=== PATIENT | female | born 1990 | race Caucasian/White ===

== ENCOUNTER → 2019-09-01 | Outpatient (CLI) | payer OTHER ==
--- NOTE | 2019-09-02 04:52 | REP ---
Clinical: Placental location Comparison: None . Findings: Examination demonstrates a single live intrauterine in cephalic presentation. motion is identified by technologist. Placenta is noted anterior and grade I without evidence for placenta previa or abruption. Placental tip 4 cm from the closed internal os. Amniotic fluid volume is normal. Cervix measures 3.4 cm in length and appears closed. No evidence for nuchal cord. Gestational age by LMP 26 weeks 4 days with GRAEME 12/04/2019 . Gestational age by current measurements 26 weeks 6 days with GRAEME 12/02/2019 . FHR equals 144 beats per minute. Estimated weight 964 grams ( 43rd percentile). Anatomical assessment demonstrates normal structures including cranium, choroid plexus, cavum, cerebellum/posterior fossa, facial features, lungs, four-chamber heart/ventricular outflow tracts, diaphragm, stomach, cord insertion/three-vessel cord, kidneys/bladder, and upper extremities. Impression: 1. Single live intrauterine in cephalic presentation demonstrating appropriate estimated weight. 2. Placenta identified anteriorly and 4 cm from the closed internal os. Electronically Signed by Chicho Diallo MD 09/02/2019 04:43 A
== END ==
LOC: M RAD 09:25
PROVIDERS: ATTEND Registered Nurse Maternal Newborn
DX: Z34.02 Encounter for supervision of normal first pregnancy, second trimester (principal); Z3A.25 25 weeks gestation of pregnancy

== ENCOUNTER → 2019-11-20 | Outpatient (CLI) | payer OTHER ==
[~2019-11-20] MED LIST: DIBU10OI TOP; DOCU100C16 PO; IBUP80TA PO; PRENTAB9 PO
--- NOTE | 2019-11-20 11:09 | REP ---
Obstetric sonography: History: 50-vbya-0-day gestation for growth study, biophysical profile and Doppler. Size less than dates. Comparison study September 01, 2019. Findings: Scanning through the gravid uterus confirms the presence of a single living intrauterine gestation in a cephalic lie. motion is observed and heart rate is recorded at 150 beats per minute. Anterior grade 2 placenta is seen without evidence of previa or abruption. Amniotic fluid is subjectively normal. No extrauterine abnormalities observed. There has been appropriate interval growth. Exam quality is inhibited some degree by advanced gestational age and position. Biometry chart: BPD 9.3 cm 37 weeks 6 days Head circumference 32.8 cm 37 weeks 2 days Abdominal circumference 33.6 cm 37 weeks 4 days Femur length 7.1 cm 36 weeks 3 days Humeral length 6.4 cm 37 weeks 0 days HC/AC ratio normal 0.98 Cephalic index normal 0.81 Estimated weight 3163 grams, 6 pounds 15 ounces, 46 percentile for 38 weeks 0 days TREY normal 17.7 cm Biophysical profile score eight out of a possible eight SD ratio in the umbilical cord artery by Doppler slightly elevated at 2.77 (1.60-2.60) Impression: Viable single intrauterine gestation at 37 weeks 1 day by today's composite criteria. Expected gestational age estimate based on prior sonography is 38 weeks 2 days. GRAEME by prior sonography December 02, 2019. Electronically Signed by Adrián Christianson MD 11/20/2019 11:01 A
== END ==
LOC: M RAD 09:15
PROVIDERS: ATTEND Registered Nurse Maternal Newborn
DX: O26.843 Uterine size-date discrepancy, third trimester (principal); Z3A.38 38 weeks gestation of pregnancy

== ENCOUNTER → 2019-11-27 | Outpatient (CLI) | payer OTHER ==
--- NOTE | 2019-11-27 11:01 | REP ---
OB ULTRASOUND, BIOPHYSICAL PROFILE: Real-time sonographic evaluation of the gravid uterus performed. There is a single living intrauterine gestation. The estimated gestational age is reportedly 39 weeks 0 weeks, EDC 12/04/2019. heart rate 150 beats per minute. Amniotic fluid appears within normal limits. TREY 13.4, normal range 7.2 to 22.6. Biophysical profile score is 8/8. S/D ratio 2.18, normal range 1.6 to 2.8. RI 0.54. position vertex. Placenta anterior and grade 1-2 with no previa or abruption. Electronically Signed by Marshall Bal MD 11/30/2019 10:14 P
== END ==
LOC: M RAD 09:19
PROVIDERS: ATTEND Advanced Practice Midwife
DX: Z34.83 Encounter for supervision of other normal pregnancy, third trimester (principal); Z3A.39 39 weeks gestation of pregnancy

== ENCOUNTER 2019-11-29 01:50 | Inpatient (IN) | payer OTHER ==
[~2019-11-29] VITALS: Ht 167.6 cm; Wt 65.2 kg
[2019-11-29] VITALS (52 sets, daily range): BP systolic 98–141; BP diastolic 54–114
[2019-11-29] MEDS ORDERED: PRENTAB9 PO (02:06)
[2019-11-29] MEDS ORDERED: LACTATED RINGER'S 1000 ML IV STA (03:01)
--- NOTE | 2019-11-29 03:01 | HPEPDOC ---
Obstetrical History & Physical General Date of Admission History of Present Illness Patient is a 29yo at 39.2wks by LMP c/w 15wk US. C/o large gush of fluid at 0100. Having ctx since. No VB. No headache or visual changes. Good movement. Chief Complaint: Rupture of membranes Information Provided By: Patient : 1 Term: 0 Care Care: Good Care Dating Final EDC: Dec 04, 2019 Final EDC by: LMP Antepartum Course Height (inches): 65 Pre- weight (lbs.): 120 Admission Weight (lbs.): 145 Change in Weight (lbs.): 25 Past Medical History Past Obstetrical History : Past Obstetrical History: [employer] History: No pertinent history Past Medical History Medical History none Surgical History: Breast augmentation, [place] teeth Social History Marital Status: Family situation: Spouse/partner home Psychosocial History: No pertinent psych hx Alcohol: Denies Drugs: denies Abuse Violence Screening Have you been hit/kicked/slapp: No Have you been sexually assault: No Imunizations Tdap status: current Influenza Status: current Allergies Coded Allergies: No Known Allergies (Unverified , 11/29/19) Medications Scheduled No.137/Iron/Folic Acd ( Vitamin Tablet) 1 Each Tablet, 1 TAB PO DAILY Physical Examination Physical Examination GENERAL: Alert and oriented times three. BREAST: . ABDOMEN: Gravid and non-tender to touch. FETUS: Is vertex (VTX) by sterile vaginal examination (SVE), fetus is 3200gm by Theodore. HEART RATE: Regular rate and rhythm. LUNGS: Clear to auscultation (CTA). EXTREMITIES: No edema. SSE: large pooling and nitrazine positive Vital Signs/I&O Vital Signs Date Time Temp Pulse Resp B/P (MAP) Pulse Ox O2 Delivery O2 Flow Rate FiO2 11/29/19 02:15 97.9 73 16 132/74 (93) Laboratory Data Urine Culture: Contaminated Pertinent Laboratoy Data Blood Type: O+ RBC Antibody Screen: Negative HIV: Negative Hepatitis B: Negative Rapid Plasma Reagin: Nonreactive Rubella: Immune Varicella: Nonreactive Chlamydia/Gonorrhea: Negative Group B Streptococcus: Negative Quad Screen Test: Negative Glucose Tolerance Test: 78 Anatomy Ultrasound Ultrasound Date: Jul 16, 2019 Placenta Location: Anterior Normal Anatomy: Yes Placenta Previa: No Estimated Weight (grams): 332 Steroid Therapy Steroid Therapy: No Vaginal Examination Dilation: 3 cm Effacement: 90% Station: -2 Cervical Consistency: Soft Cervical Position: Posterior Presentation: Cephalic presentation Position: Vertex (occiput) Assessment Heart Rate (FHR): 120 Variability: Moderate Accelerations: Positive Decelerations: None Tocometer Contractions: Yes Frequency: every 2-5 min. Multi-drug resistant Organism: No history of MDRO Assessment/Plan Assessment Patient is a 29yo at 39.2wks by LMP c/w 15wk US. Admit for SROM and expect delivery by . Pain management per patient preference, which was discussed with her. I discussed risks of with patient of failure with section, distress, bleeding, infection, , vaginal or perineal or neighboring organ tear. Currently, fetus is reassuring. GBS is negative, no need for antibiotics. Plan Admit and orient. Director Of Nursing and consent. Diet: Regular. Group B Streptococcus (GBS) negative. Labs and intravenous (IV) per unit protocol. Counseled on Pitocin and augmentation of labor. Lactated Ringers (LR): Bolus 500 mL, then at 125 mL/hr. Anticipate normal spontaneous delivery (). C-S as appropriate. Pain mgt per patient. Monae Argueta MD Nov 29, 2019 03:01
[2019-11-29] MEDS ORDERED: diphenhydrAMINE 25MG CAP PO PRN (03:15)
[2019-11-29] MEDS ORDERED: CALCIUM CARBONATE 500 MG CHEW U/D PO PRN (03:15)
[2019-11-29] MEDS ORDERED: SIMETHICONE 80 MG CHEW TAB PO PRN (03:15)
[2019-11-29] MEDS ORDERED: ONDANSETRON 4MG/2ML VIAL IV SCH (03:15)
[2019-11-29] MEDS ORDERED: PROMETHAZINE INJ 25 MG/ML VIAL (J2550) IV PRN (03:15)
[2019-11-29] MEDS ORDERED: MOM 30ML SUSPENSION UDC PO PRN ×2 (03:15→21:15)
[2019-11-29] MEDS ORDERED: BUTORPHANOL 2 MG/ML INJ (J0595) IV PRN (03:15)
[2019-11-29] MEDS ORDERED: ACETAMINOPHEN 500 MG TAB PO PRN ×2 (03:15→21:15)
[2019-11-29] MEDS: LR 1,000 ML IV SCH ×2 (03:43→07:13)
[2019-11-29 03:58] LABS: BASO # 0.1 10^3/uL (0.0-0.2); BASO % 0.7 % (0.0-1.0); EOS # 0.1 10^3/uL (0.0-0.5); EOS % 0.6 % (0.0-3.0); HEMATOCRIT 33.3 % (36.0-47.0); HEMOGLOBIN 11.1 g/dl (12.0-15.5); LYMPH % 24.3 % (24.0-44.0); MEAN CORPUSCULAR HEMOGLOBIN 29.8 pg (27.0-33.0); MEAN CORPUSCULAR HGB CONC 33.3 g/dl (32.0-36.5); MEAN CORPUSCULAR VOLUME 89.5 fl (80.0-96.0); MONO % 7.7 % (0.0-5.0); NEUTROPHILS # 8.2 10^3/uL (1.5-8.5); NEUTROPHILS % 65.7 % (36.0-66.0); PLATELET COUNT, AUTOMATED 280 10^3/uL (150-450); RED BLOOD COUNT 3.72 10^6/uL (4.00-5.40); WHITE BLOOD COUNT 12.4 10^3/uL (4.0-10.0)
[2019-11-29] MEDS ORDERED: FENTANYL 2MCG/ML ROPIVACAINE 0.2% IN 0.9% NACL 100ML IVBAG As Ordered ONE ×2 (07:51→15:40)
[2019-11-29] MEDS ORDERED: ePHEDrine SULFATE 25 MG/5 ML(5MG/ML) SYRINGE IV PRN (08:15)
[2019-11-29] MEDS ORDERED: REFRIGERATOR IV KEYS XX PRN (08:15)
[2019-11-29] MEDS ORDERED: EPIDURAL/PCA KEYS XX PRN (08:15)
[2019-11-29] MEDS ORDERED: EPIDURAL COMMENT XX SCH (08:15)
[2019-11-29] MEDS ORDERED: NALOXONE INJ 0.4MG/1ML VIAL (J2310 PER 1MG) IV PRN (08:15)
[2019-11-29] MEDS ORDERED: diphenhydrAMINE 50MG/ML VIAL (J1200) IV PRN (08:15)
[2019-11-29] MEDS ORDERED: ONDANSETRON 4MG/2ML VIAL IV PRN (08:15)
[2019-11-29] MEDS: FENTANYL/ROPIVACAINE/NACL BAG 100 ML EPIDURAL SCH ×2 (08:28→15:44)
[2019-11-29] MEDS ORDERED: OXYTOCIN DRIP 30 UNITS in IV 1 EA IV SCH (11:45)
[2019-11-29 20:56] LABS: CORD GAS ABE A -5.8; CORD GAS ABE V -4.6; CORD GAS HCO3 A 18.7 MEQ/L; CORD GAS HCO3 V 19.5 MEQ/L; CORD GAS O2 SAT A 71.8 %; CORD GAS O2 SAT V 67.9 %; CORD GAS PCO2 A 34.5 mmHg; CORD GAS PCO2 V 34.7 mmHg; CORD GAS PH A 7.351 UNITS; CORD GAS PH V 7.368 UNITS; CORD GAS PO2 A 30.6 mmHg; CORD GAS PO2 V 28.2 mmHg; CORD GAS SBC A 19.2 MEQ/L; CORD GAS SBC V 19.9 MEQ/L; CORD GAS TCO2 A 19.7 MEQ/L; CORD GAS TCO2 V 20.6 MEQ/L
[2019-11-29] MEDS ORDERED: IBUPROFEN 800 MG TAB PO PRN (21:15)
[2019-11-29] MEDS ORDERED: METHYLERGONOVINE MALEATE 0.2 MG TAB PO PRN (21:15)
[2019-11-29] MEDS ORDERED: DOCUSATE SODIUM 100 MG CAP PO PRN (21:15)
[2019-11-29] MEDS ORDERED: ANUSOL HC CREAM 30GM TOP PRN (21:15)
[2019-11-29] MEDS ORDERED: IBUPROFEN 600MG TAB PO PRN (21:15)
[2019-11-29] MEDS ORDERED: DIBUCAINE 1% OINTMENT 30GM TOP PRN (21:15)
[2019-11-29] MEDS ORDERED: RHOGAM 300 MCG (1500 IU) INJ (J2790) IM SCH (21:15)
[2019-11-29] MEDS ORDERED: MEASLES,MUMPS,RUBELLA VACCINE INJ (MMR-II) (90707) SC SCH (21:15)
[2019-11-29] MEDS ORDERED: OXYTOCIN INJ 10 UNITS/ML VIAL (J2590) IV ONE (21:15)
[2019-11-29] MEDS ORDERED: ACETAMINOPHEN TAB 650MG DOSE (2X325MG) PO PRN (21:15)
[2019-11-29] MEDS ORDERED: OXYTOCIN DRIP 30 UNITS in IV 1 EA IV ONE (21:15)
[2019-11-30 05:52] VITALS: BP 107/55
--- NOTE | 2019-11-30 07:33 | IPN ---
DATE: 11/29/2019 This is a 29-year-old, 1, para 0, at 39 and 2 weeks of gestation with a history of premature rupture of membranes of clear liquor. She was evaluated initially when she came in, was cara, had a category 1 strip, now asks for an epidural. She was in the process of having her epidural. The nurse checked her post epidural and found to be 5-6 cm with clear liquid, category 1 strip. She is not getting great pain relief from her epidural and may require attention from anesthesiology. Her blood pressure presently is 109/60, respirations 16, pulse 68, temperature 97.9. Her hemoglobin is 11.1, hematocrit 33.3, and platelets 280. In summary, we have a term gestation in active labor, premature rupture of membranes, category 1 strip, safe to proceed.
[2019-11-30] MEDS: PRENATAL VITAMINS CHEWABLE TABLET PO SCH (07:37)
[2019-11-30 07:45] LABS: HEMATOCRIT 27.5 % (36.0-47.0); MEAN CORPUSCULAR HEMOGLOBIN 30.3 pg (27.0-33.0); MEAN CORPUSCULAR HGB CONC 33.1 g/dl (32.0-36.5); MEAN CORPUSCULAR VOLUME 91.7 fl (80.0-96.0); PLATELET COUNT, AUTOMATED 212 10^3/uL (150-450); WHITE BLOOD COUNT 22.7 10^3/uL (4.0-10.0)
[2019-11-30 08:00] LABS: HEMOGLOBIN 9.1 g/dl (12.0-15.5)
--- NOTE | 2019-11-30 11:56 | IPN ---
DATE: 11/30/2019 This lady is a 29-year-old 1, now para 1, was admitted at 39 weeks and 2 days in spontaneous labor. She had an epidural in place, delivered a live male infant 6 pounds 9 ounces (2990 grams). score of 8 and 8 at one and five minutes, respectfully. Arterial pH 7.35, base excess -5.8. Venous pH 7.36, base excess -4.6. Cord was around the neck times one tight. She had an intact perineum, some bruising in the vagina. On her first day, we discussed phlebitis, cystitis, mastitis, endometritis and cellulitis, diet, exercise, pain management, perineal, breast and wound care. Blood pressure this morning is 107/55, respirations are 14, pulse 61, temperature is 97.3. Her admitting hemoglobin was 11.1, hematocrit 33.3, and platelets were 280. We are waiting for her day #1 hemoglobin. She is presently breast-feeding, doing well. Plan is for discharge tomorrow. 6-week followup at [facility] and medications dispensed at [place]. All questions were answered, basic translation through her .
[2019-11-30 18:00] VITALS: BP 124/60
[2019-12-01 06:00] VITALS: BP 128/70
[2019-12-01] MEDS ORDERED: DIBU10OI TOP (06:36)
[2019-12-01] MEDS ORDERED: IBUP80TA PO (06:36)
[2019-12-01] MEDS ORDERED: DOCU100C16 PO (06:36)
[2019-12-01] MEDS: PRENATAL VITAMINS CHEWABLE TABLET PO SCH (09:40)
--- NOTE | 2019-12-06 06:56 | DN ---
DATE: 11/29/2019 This 29-year-old, 1, was admitted at 39 and 2 weeks of gestation with questionable ruptured membranes and active labor. She had an epidural in place, spontaneous vaginal delivery of a female infant, 6 pounds 9 ounces, 2990 grams, Apgars of 8 and 8 at one and five minutes respectively. Cord around neck x1, tight. Arterial pH 7.35, base excess -5.8; venous pH 7.36, base excess -4.6. Placenta delivered thereafter. Three-vessel and the cord, membranes and tissues intact. The uterus contracted well down under Pitocin. Digital examination of the uterine cavity was negative. Cervix appeared to be normal. Anterior, posterior and lateral garcia were complete. Sphincter was tight. Uterus contracted well under Pitocin. The patient and baby tolerating the procedure well.
--- NOTE | 2019-12-09 12:52 | DSES ---
DATE OF ADMISSION: 11/29/2019 DATE OF DISCHARGE: 12/01/2019 This lady is a 29-year-old 1, now para 1. Came in spontaneous labor at 39 and 2 weeks of gestation. Had an epidural in place. Delivered a live- female infant, 6 pounds 9 ounces, 2990 grams, scores of 8 and 8 at one and five minutes, respectively. Arterial pH 7.35, base excess -5.8, venous pH 7.36, base excess -4.6. Through the penology professor we discussed phlebitis, cystitis, mastitis, metritis, cellulitis, diet, exercise, pain management, perineal, breast, and wound care. Medications are at [place]. A 6-week appointment at [facility]. The patient is presently breast-feeding. Baby is jaundiced. May require light today. On discharge, her blood pressure 128/70, respirations 16, pulse 58, temperature 97.6. Her admitting hemoglobin was 11.1, hematocrit 33.3, and platelets were 280. Discharge hemoglobin 9.1, hematocrit 27.5, and platelets are 212. She has no rashes, lesions, or pruritus. No arthralgia or myalgia. No complaint of joint pain. No complaint cough, wheeze, shortness of breath, or dyspnea on exertional. No nausea, vomiting, diarrhea, or constipation. No urgency or frequency. She is voiding well. Has had a bowel movement. Passing gas. Breast=feeding is going well. Plans are to see her at her 6-week checkup, at which time control will be discussed. All questions were answered through the penology professor. A 20-minute discussion.
== END 2019-12-01 14:30 | disposition home or self-care (01) | DRG 807 ==
LOC: M LDO 01:50 → M LDI 03:06 → M OBS 23:04
PROVIDERS: ADMIT Obstetrics & Gynecology; ATTEND Obstetrics & Gynecology
PROC: 10E0XZZ Delivery of Products of Conception, External Approach (ICD-10-PCS; principal; 2019-11-29)
DX: O69.0XX0 Labor and delivery complicated by prolapse of cord, not applicable or unspecified (principal); Z37.0 Single live birth; Z3A.39 39 weeks gestation of pregnancy